=== PATIENT | female | born 1970 | race Caucasian/White ===

== ENCOUNTER 2016-12-23 13:14 | Emergency (ER) | payer MEDICARE, SELFPAY ==
[2016-12-23 11:23] LABS: BASOPHILS 0.3 %; BASOPHILS ABSOLUTE 0.02 10/3/uL (0.0-0.16); ER CBC TAT 0 Hrs 05 Mins; HEMATOCRIT 42.3 % (36.0-48.0); HEMOGLOBIN 14.1 g/dL (12.0-16.0); IMMATURE GRANULOCYTES 0.1 %; IMMATURE GRANULOCYTES ABSOLUTE 0.01 10/3/uL (0.0-0.11); LYMPHOCYTES 21.7 %; LYMPHOCYTES ABSOLUTE 1.47 10/3/uL (0.67-4.30); MEAN CORPUS HGB CONC 33.3 g/dL (32.0-36.0); MEAN CORPUSCULAR HEMOGLOB 29.6 pg (26.0-34.0); MEAN CORPUSCULAR VOLUME 88.9 fL (80-100); MEAN PLATELET VOLUME 10.1 fL (9.2-13.0); MONOCYTES 8.6 %; MONOCYTES ABSOLUTE 0.58 10/3/uL (0.21-1.20); NEUTROPHILS 66.3 %; NEUTROPHILS ABSOLUTE 4.49 10/3/uL (2.02-8.40); PLATELET COUNT 256 10/3/uL (150-400); RBC DISTRIBUTION WIDTH 13.8 % (12.0-16.0); RED CELL COUNT 4.76 10/6/uL (4.0-5.6); WHITE BLOOD CELLS 6.8 10/3/uL (4.5-10.5)
[2016-12-23 11:24] LABS: MANUAL DIFF NO %
[2016-12-23 11:40] LABS: ALBUMIN 3.6 G/DL (3.5-5.0); CALCIUM, SERUM 9.4 MG/DL (8.5-10.4); CHLORIDE, SERUM 107 MMOL/L (96-112); CO2 (CARBON DIOXIDE) 27 MMOL/L (24-34); GFR AFRICAN AMERICAN 120 ML/MIN (>=60); GFR NON AFRICAN AMERICAN 103 ML/MIN (>=60); GLOBULIN 3.7 G/DL (2.5-4.1); GLUCOSE, SERUM 97 MG/DL (60-99); POTASSIUM, SERUM 3.9 MMOL/L (3.5-5.3); SGOT(AST) 14 U/L (5-40); SGPT(ALT) 26 U/L (5-65); SODIUM, SERUM 142 MMOL/L (135-148); TOTAL BILIRUBIN 0.2 MG/DL (0-1.2); TOTAL PROTEIN 7.3 G/DL (6.0-8.5)
[2016-12-23 11:43] LABS: ALKALINE PHOSPHATASE 100 U/L (45-117); BUN (BLOOD UREA NITROGEN) 12 MG/DL (6-23)
[2016-12-23 12:42] LABS: ASCORBIC ACID (UR NOT ORDER) NEG (NEG); BILIRUBIN, URINE NEGATIVE (NEG); ER URINALYSIS TAT 0 Hrs 12 Mins; KETONE, URINE NEGATIVE (NEG); LEUKOCYTE ESTERASE(NOT OR SMALL (NEG); NITRITE (URINE) NEG (NEG); WBC (NOT ORDERED) (RFLEX) 68 (0-5)
[~2016-12-23 13:14] MED LIST: ABILIFY20 MG PO; ALEVE220 MG PO; AMB10 PO; AMB5 PO; AMITIZA24 PO; AMITIZA8 MCG PO; BACDS PO; BELVIQ PO; BUM1 PO; C2 PO; C5 PO; CEFT5 PO; CELEBREX2 PO; CIP5 PO; COUMADIN3 MG PO; COUMADIN4 MG PO; CYMBALTA30 PO; CYMBALTA60 PO; DIL2TAB PO; DSS PO; DUONEB INH; DURICEF PO; ENDOCET1 TA3 PO; ESTRACE0.5 MG PO; ESTRACE1 MG PO; ESTRADIOL1 MG PO; FLEX PO; FLUCON150 PO; FLUCON2 PO; HYDROCHLOROT25 MG PO; IVFLUCO200 IV; K500 PO; L40 PO; LAMICTAL10 PO; LEVAQUIN5T PO; LEVAQUIN750 MG PO; LIDODERM T; LINZESS 290 M290 MCG PO; LORT7 PO; LYRICA150 MG PO; MIRALAXPKT PO; MOBIC7.5 PO; MOMUD PO; MULTIVIT/MIN PO; MYRBETRIQ25 MG PO; MYRBETRIQ50 MG PO; NEUR300 PO; NEUR800 PO; NORCO1 TA1 PO; NORCO1 TA2 PO; P10; P10 PO; P20 PO; PAXIL30 MG PO; PCET PO; PENICILLN VK500 MG PO; PERCOCET1 TA2 PO; PERCOCET1 TA4 PO; PHENTERMINE37.5 M1 OR; PR25 PO; PRILOSEC40 MG PO; PROAIR HFA INH; PROMETHAZIN1 PO; PROVERA5 MG OR; PROVERA5 MG PO; PROZAC PO; PROZAC40 MG PO; PYR200 PO; REMERON30 MG PO; SARAFEM20 M1 PO; SINGULAIR1 PO; SINGULAIR5 PO; SOMATAB PO; SPIRO25 PO; SPIRO50 PO; STERAPDS12 PO; STERAPRED DS10 MG PO; STERIOID; SYMBICORT 160/41 INH INH; SYMBYAX PO; ULTRAM50 PO; V5 PO; VENTOLIN HFA INH; VESICARE5 PO; VICODIN ES1 TAB PO; WELL100 PO; X5 PO; XANAX1 MG PO; XARELTO20 MG PO; ZANAFLEX 4 MG TA4 MG PO; ZYP5 PO; ZYPREXA ZYDI20 MG PO; ZYPREXA10 MG PO; ZYPREXA15 MG PO; ZYPREXA7.5 MG PO; [UNRECOGNIZED DRUG - REMARK]
[2017-03-18] MEDS ORDERED: SANCTURA20 MG PO (13:08)
== END 2016-12-23 13:16 | disposition home or self-care (01) ==
LOC: ER 13:14
PROVIDERS: Nurse Practitioner Acute Care
DX: R10.9 Unspecified abdominal pain (principal); I10 Essential (primary) hypertension; J45.909 Unspecified asthma, uncomplicated; J44.9 Chronic obstructive pulmonary disease, unspecified; Z88.5 Allergy status to narcotic agent; Z88.8 Allergy status to other drugs, medicaments and biological substances; Z79.899 Other long term (current) drug therapy
CPT/HCPCS: 74176; 80053; 81001; 83690; 85025; 87077; 87086; 87186; 99285

== ENCOUNTER 2017-01-18 22:16 | Inpatient (IN) | payer MEDICARE ==
--- NOTE | ~2017-01-18 | HP ---
History And Physical [place] [id number] [facility] [place]. [address] NAME: AMBER MOTA : 68 STATUS : ADM IN [facility]#: [id number] AGE: 46 ADM/REG DATE : 01/19/17 MR#: [id number] REPORT SERV DATE: 01/19/17 DICTATED BY: BRADEN CARLOS DATE: 01/19/17 REPORT STATUS : Draft TRANSCRIBED BY: MODSujata DATE: 01/19/17 DATE OF ADMISSION: 01/19/2017 REASON FOR ADMISSION: Altered mental status. Primary care doctor appears to be Dr. Diaz. She sees Dr. Lyons for urology needs. HISTORY OF PRESENT ILLNESS: This is a 46-year-old female. She has an unfortunate history of cerebral palsy with bilateral lower extremity plegia, does have 5/5 power in her bilateral upper extremities and her mentation is unaffected, known history of UTIs even with MRSA, history of two PEs now on Xarelto, history of nephrolithiasis, even requiring double-J stent with hydronephrosis, hiatal hernia, ITZEL not on CPAP, wears nasal cannula at night, history of COPD, horseshoe kidney, pulmonary hypertension, and schizoaffective disorder. SURGICAL HISTORY: Appendectomy, cholecystectomy, hysterectomy, partial foot amputation on the right, , and tubal ligation. The patient comes in of significant encephalopathy. She thought she could still use her legs as she could four years ago and almost fell to the ground as she does have known chronic bilateral lower extremity plegia due to her progressive cerebral palsy. The patient seemed confused. The family wanted the patient to come to the hospital. Significant dysuria, increased urinary frequency, significant pyuria even with white blood cell casts, has had two courses of antibiotics Cipro and Bactrim with failed outpatient therapy over the last one month. The patient denies any fevers or chills. Positive nausea. No vomiting. No diarrhea. No chest pain or chest pressure. No shortness of breath. PAST MEDICAL HISTORY: See above. PAST SURGICAL HISTORY: See above. ALLERGIES: APPARENTLY MACROBID, JOBY INHIBITOR, MORPHINE, CODEINE, AND CLONIDINE. SOCIAL HISTORY: . Lives with daughter and son in [place], [place]. Total of three children, wheelchair bound now unfortunately. No alcohol, drug use, or tobacco use. FAMILY HISTORY: Stroke, diabetes, and heart disease. CURRENT MEDICATIONS: See MAR. We will continue what is relevant. REVIEW OF SYSTEMS: Done, see HPI. Otherwise, negative. OBJECTIVE: VITAL SIGNS: Currently 120 systolic, the patient was 121/73, 98.0 temperature, 85 pulse, 18 respirations, and 97% room air. History And Physical [address] [address] NAME: AMBER MOTA : 68 STATUS : ADM IN [facility]#: [id number] AGE: 46 ADM/REG DATE : 01/19/17 MR#: [id number] REPORT SERV DATE: 01/19/17 DICTATED BY: BRADEN CARLOS DATE: 01/19/17 REPORT STATUS : Draft TRANSCRIBED BY: MARY DATE: 01/19/17 GENERAL: No acute distress. HEENT: PERRLA. No scleral icterus. CARDIOVASCULAR: Regular rate and rhythm. No murmur. RESPIRATORY: Decreased breath sounds bibasilarly. No wheezes. No crackles. ABDOMEN: She does have some mild right lower quadrant abdominal pain. Tenderness to palpation. No peritoneal signs. No rebound tenderness. EXTREMITIES: She does have left greater than right lower extremity swelling, about 1+ pitting edema. NEUROLOGIC: She is A and O x4/4. GCS of 15 at this time. LABS: White count 6.6, hemoglobin 13.5, 227,000 platelets, 3.5 potassium, 27 bicarb, 0.77 creatinine, 15 BUN, 140 sodium and is a little elevated at 33 as a result, has ABGs 7.39/46/66 and 18, apparently 21%. UA significant positivity. I will be getting a CT abdomen and pelvis. CT of the head did not show any acute stroke, bleed, or mass. ASSESSMENT: 1. Sepsis, severe due to encephalopathy subjectively. SIRS criteria being met which is going to be respirations above 18 transiently and a heart rate above 90 transiently. 2. Urinary tract infection with consideration for drug resistance. 3. Cerebral palsy with bilateral lower extremity plegia. 4. Hyperammonemia, very mild. 5. History of two pulmonary emboli requiring anticoagulation. PLAN: Go ahead and admit this patient. I am concerned about possible drug resistance. I do not want to start meropenem until we have a definite urine culture as the patient is not hemodynamically unstable or profoundly septic at this time except for encephalopathy. As a result, just place the patient on IV Rocephin until urine culture results and may need meropenem. Place on lactulose. Continue the home Xarelto. I do not have a home MAR in front of me, so I am gleaning from the last discharge. Continue the relevant home medications including Abilify. CT abdomen and pelvis to rule out for any pyelonephritis. May need stenting if she has any hydronephrosis once again. All questions were answered. It took well over 60 minutes to do. Reference [employer] and [employer]. WST/MODL Braden Carlos DO / [id number] CC: Buzz Reyes Jr, MD Ted Scoggins, M.D.
--- NOTE | ~2017-01-18 | DS ---
Discharge Summary [place] [address] [address] [place]. [address] NAME: AMBER MOTA : 68 STATUS : DIS IN PAT#: [id number] AGE: 46 ADM/REG DATE : 01/19/17 MR#: [id number] REPORT SERV DATE: 01/23/17 DICTATED BY: JR. REYES WILLIAM JOHN DATE: 01/22/17 REPORT STATUS : Draft TRANSCRIBED BY: MARY DATE: 01/22/17 ADMISSION DATE: 01/19/2017 DISCHARGE DATE: 01/22/2017 DISCHARGE DIAGNOSES: Include: 1. Fungal urinary tract infection. 2. Left knee pain with recent left total knee arthroplasty by Dr. Henderson. 3. Patellar tendon injury. 4. Toxic encephalopathy secondary to fungal urinary tract infection. 5. Cerebral palsy with lower extremity plegia. 6. History of pulmonary embolism. 7. History of chronic obstructive pulmonary disease. 8. Schizoaffective disorder. OPERATIONS, PROCEDURES, AND TREATMENTS: Include: 1. CT of the head done 01/19/2017, which was unremarkable and unchanged from prior study. 2. Portable chest x-ray done 01/19/2017, which was normal. 3. CT of the abdomen and pelvis done 01/19/2017 which showed horseshoe kidney with no parenchymal enhancement. There are no perirenal inflammatory changes. 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 4. 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 5. Urine culture done 01/19/2017, which showed yeast. 6. Blood cultures x2 done 01/19/2017 which showed no growth to date. DISCHARGE MEDICATIONS: Include: 1. Abilify 15 mg orally daily. 2. Cymbalta 120 mg orally daily. 3. Diflucan 200 mg orally daily through 02/03/2017. 4. Neurontin 800 mg orally three times a day. 5. Singulair 10 mg orally daily. 6. Xarelto 20 mg orally daily. 7. Trazodone 150 mg orally daily. 8. Symbicort 160/4.5 two puffs daily. 9. Valium 5 mg t.i.d. p.r.n. 10.Percocet 10/325 one tablet every four hours as needed. 11.Albuterol two puffs as needed. HOSPITAL COURSE: The patient was a 46-year-old female, who presented to the emergency room on 01/19/2017 for mental status change. The patient has a history of cerebral palsy with lower extremity plegia and had a recent mental status change. Please see Dr. Mccartney's dictation for further details. Her workup was consistent with a urinary tract infection. Urine cultures and blood cultures were obtained. She was empirically Discharge Summary [address] [address] [place]. [address] NAME: AMBER MOTA : 68 STATUS : DIS IN PAT#: [id number] AGE: 46 ADM/REG DATE : 01/19/17 MR#: [id number] REPORT SERV DATE: 01/23/17 DICTATED BY: JR. REYES WILLIAM JOHN DATE: 01/22/17 REPORT STATUS : Draft TRANSCRIBED BY: MARY DATE: 01/22/17 started on Rocephin. Urine cultures grew yeast. Her Rocephin was discontinued. She was started on oral Diflucan. The patient's mental status gradually improved. By the day of discharge, the patient's mental status was near or at baseline. Regarding cerebral palsy, the patient was seen and evaluated by Physical Therapy who recommended hospital bed, tub transfer bench, and leg lift, all of which have been written for, and home physical therapy. Regarding the patient's left knee pain, she had her left knee total arthroplasty done by Dr. Henderson in 10/2016. She said she has had pain in the leg ever since and has been unable to bear weight. She underwent an MRI with metal suppression technique which showed what appears to be a repetitive patellar tendon injury. I attempted to get Orthopedic Surgery at [facility] to see the patient. However, they recommended to follow up with Dr. Henderson. I discussed this with the patient. She will follow up with Dr. Henderson. Regarding the patient's hypoxia, she was somewhat hypoxic, likely from inactivity issue of an oxygen desaturation study prior to discharge and will be set up for oxygen if needed. The patient will be discharged home today 01/22/2017 in good condition. She will follow up with her primary care physician, Dr. Hernandez, within one to two weeks. She will follow up with Orthopedic Surgery, Dr. Henderson, regarding patellar tendon injury. DIET: Will be regular. ACTIVITY: As tolerated. We will have home equipment as above, will be evaluated for home oxygen as above. For discharge exam and laboratory, please see daily progress note. This discharge took 38 minutes for patient encounter, coordination of care, and documentation. WJF/MODL Buzz Reyes Jr, MD / [id number] CC: Buzz Reyes Jr, MD Max Russell II Baldwin
[2017-01-19 06:12] LABS: BE (BASE EXCESS) 1.7 MEQ/L (0 +/- 2.5); CARBOXYHEMOGLOBIN 1.9 % (0-3); HCO3 (ACTUAL BICARBONATE) 27.2 MEQ/L (23-27); HEMOBLOGIN CONTENT 14.2 G/DL (12-16); INSTRUMENT SERIAL # 8087; METHEMOGLOBIN 0.3 % (0-3); O2 CONTENT 18.1 VOL% (18-24); PCO2 (CO2 TENSION) 46 MMHG (35-45); PO2 (O2 TENSION) 66 MMHG (79-93); SAMPLE Arterial; pH 7.39 (7.37-7.43)
[2017-01-19 06:21] LABS: BASOPHILS 0 %; EOSINOPHILS 3.2 %; EOSINOPHILS ABSOLUTE 0.21 10/3/uL (0.0-0.53); HEMOGLOBIN 13.5 g/dL (12.0-16.0); LYMPHOCYTES 29.6 %; LYMPHOCYTES ABSOLUTE 1.96 10/3/uL (0.67-4.30); MEAN CORPUS HGB CONC 32.1 g/dL (32.0-36.0); MEAN CORPUSCULAR HEMOGLOB 28.5 pg (26.0-34.0); MEAN CORPUSCULAR VOLUME 88.6 fL (80-100); MEAN PLATELET VOLUME 10.4 fL (9.2-13.0); MONOCYTES 5.9 %; MONOCYTES ABSOLUTE 0.39 10/3/uL (0.21-1.20); NEUTROPHILS 61.3 %; NEUTROPHILS ABSOLUTE 4.07 10/3/uL (2.02-8.40); PLATELET COUNT 227 10/3/uL (150-400); RBC DISTRIBUTION WIDTH 14.3 % (12.0-16.0); RED CELL COUNT 4.74 10/6/uL (4.0-5.6); WHITE BLOOD CELLS 6.6 10/3/uL (4.5-10.5)
[2017-01-19 06:24] LABS: MANUAL DIFF NO %
[2017-01-19 06:30] LABS: INTERNATIONAL NORMAL RATI 1.4 UNITS (-); PROTIME (NOT ORD) 17.2 SEC (12.0-14.5)
[2017-01-19 06:31] LABS: ASCORBIC ACID (UR NOT ORDER) NEG (NEG); BILIRUBIN, URINE NEGATIVE (NEG); ER URINALYSIS TAT 0 Hrs 00 Mins; KETONE, URINE NEGATIVE (NEG); LEUKOCYTE ESTERASE(NOT OR MOD (NEG); NITRITE (URINE) NEG (NEG); WBC (NOT ORDERED) (RFLEX) > 182 (0-5)
[2017-01-19 06:35] LABS: AMPHETAMINES (NOT ORD) NEG (NEG); BENZODIAZEPINES (NOT ORD) NEG (NEG); COCAINE (NOT ORDERED) NEG (NEG); PHENCYCLIDINE(PCP) NEG (NEG)
[2017-01-19 06:36] LABS: BARBITURATES (NOT ORDERED NEG (NEG); CANNABINOIDS (THC) NEG (NEG); OPIATES POS (NEG); TRICYCLICS NEG (NEG)
[2017-01-19 06:39] LABS: A/G RATIO 0.9 (0.7-1.9); ALBUMIN 3.5 G/DL (3.5-5.0); ALKALINE PHOSPHATASE 106 U/L (45-117); BUN (BLOOD UREA NITROGEN) 15 MG/DL (6-23); CALCIUM, SERUM 9.2 MG/DL (8.5-10.4); CHLORIDE, SERUM 101 MMOL/L (96-112); CO2 (CARBON DIOXIDE) 27 MMOL/L (24-34); CREATININE 0.77 MG/DL (0.55-1.02); GFR AFRICAN AMERICAN 107 ML/MIN (>=60); GFR NON AFRICAN AMERICAN 92 ML/MIN (>=60); GLOBULIN 3.7 G/DL (2.5-4.1); GLUCOSE, SERUM 89 MG/DL (60-99); POTASSIUM, SERUM 3.5 MMOL/L (3.5-5.3); SGPT(ALT) 35 U/L (5-65); SODIUM, SERUM 140 MMOL/L (135-148); TOTAL BILIRUBIN 0.9 MG/DL (0-1.2); TOTAL PROTEIN 7.2 G/DL (6.0-8.5); TROPONIN I <0.02 NG/ML (<0.05)
[2017-01-19 06:40] LABS: ACETAMINOPHEN LEVEL (TYLENOL) < 2.0 MCG/ML (10.0-20.0); ALCOHOL < 10 MG/DL (0); CPK 51 U/L (0-200); SALICYLATE < 1.7 MG/DL (-); SGOT(AST) 22 U/L (5-40)
[2017-01-19] MEDS ORDERED: NEUR800 PO (09:33)
[2017-01-19] MEDS ORDERED: V5 PO (09:33)
[2017-01-19] MEDS ORDERED: PERCOCET 10/3251 TAB PO (09:33)
[2017-01-19] MEDS ORDERED: SINGULAIR1 PO (09:34)
[2017-01-19] MEDS ORDERED: CYMBALTA60 PO (09:34)
[2017-01-19] MEDS ORDERED: XARELTO20 MG PO (09:34)
[2017-01-19] MEDS ORDERED: ABILIFY15 PO (09:34)
[2017-01-19] MEDS ORDERED: PROAIR HFA INH (09:35)
[2017-01-19] MEDS ORDERED: SYMBICORT 160/41 INH INH (09:35)
[2017-01-19] MEDS ORDERED: TRAZODONE150 MG PO (09:35)
[2017-01-19 16:45] LABS: BASOPHILS 0 %; EOSINOPHILS 0.6 %; EOSINOPHILS ABSOLUTE 0.03 10/3/uL (0.0-0.53); HEMATOCRIT 37.8 % (36.0-48.0); HEMOGLOBIN 12.2 g/dL (12.0-16.0); IMMATURE GRANULOCYTES 0.4 %; IMMATURE GRANULOCYTES ABSOLUTE 0.02 10/3/uL (0.0-0.11); LYMPHOCYTES 26.5 %; LYMPHOCYTES ABSOLUTE 1.33 10/3/uL (0.67-4.30); MANUAL DIFF NO %; MEAN CORPUS HGB CONC 32.3 g/dL (32.0-36.0); MEAN CORPUSCULAR HEMOGLOB 28.2 pg (26.0-34.0); MEAN CORPUSCULAR VOLUME 87.5 fL (80-100); MEAN PLATELET VOLUME 9.8 fL (9.2-13.0); MONOCYTES 6.2 %; MONOCYTES ABSOLUTE 0.31 10/3/uL (0.21-1.20); NEUTROPHILS 66.3 %; NEUTROPHILS ABSOLUTE 3.32 10/3/uL (2.02-8.40); PLATELET COUNT 209 10/3/uL (150-400); RED CELL COUNT 4.32 10/6/uL (4.0-5.6)
[2017-01-19 17:07] LABS: A/G RATIO 1.1 (0.7-1.9); ALBUMIN 3.3 G/DL (3.5-5.0); ALKALINE PHOSPHATASE 94 U/L (45-117); BUN (BLOOD UREA NITROGEN) 11 MG/DL (6-23); CALCIUM, SERUM 8.6 MG/DL (8.5-10.4); CHLORIDE, SERUM 104 MMOL/L (96-112); CO2 (CARBON DIOXIDE) 26 MMOL/L (24-34); CREATININE 0.57 MG/DL (0.55-1.02); GFR AFRICAN AMERICAN 128 ML/MIN (>=60); GFR NON AFRICAN AMERICAN 110 ML/MIN (>=60); GLOBULIN 2.9 G/DL (2.5-4.1); GLUCOSE, SERUM 90 MG/DL (60-99); PHOSPHORUS, SERUM 2.9 MG/DL (2.5-4.5); POTASSIUM, SERUM 3.7 MMOL/L (3.5-5.3); SGOT(AST) 14 U/L (5-40); SGPT(ALT) 28 U/L (5-65); SODIUM, SERUM 140 MMOL/L (135-148); TOTAL BILIRUBIN 0.8 MG/DL (0-1.2); TOTAL PROTEIN 6.2 G/DL (6.0-8.5); TROPONIN I <0.02 NG/ML (<0.05); ULTRASENSITIVE TSH 0.808 MCIU/ML (0.358-3.740)
[2017-01-19 18:31] LABS: PROCALCITONIN < 0.05 ng/mL (<0.5)
[2017-01-20 04:23] LABS: BASOPHILS 0 %; EOSINOPHILS 2.8 %; EOSINOPHILS ABSOLUTE 0.14 10/3/uL (0.0-0.53); HEMATOCRIT 36.7 % (36.0-48.0); HEMOGLOBIN 11.9 g/dL (12.0-16.0); IMMATURE GRANULOCYTES 0.2 %; IMMATURE GRANULOCYTES ABSOLUTE 0.01 10/3/uL (0.0-0.11); LYMPHOCYTES 39.5 %; LYMPHOCYTES ABSOLUTE 2.01 10/3/uL (0.67-4.30); MEAN CORPUS HGB CONC 32.4 g/dL (32.0-36.0); MEAN CORPUSCULAR HEMOGLOB 28.5 pg (26.0-34.0); MEAN CORPUSCULAR VOLUME 87.8 fL (80-100); MEAN PLATELET VOLUME 9.6 fL (9.2-13.0); MONOCYTES 9.8 %; NEUTROPHILS 47.7 %; NEUTROPHILS ABSOLUTE 2.43 10/3/uL (2.02-8.40); PLATELET COUNT 215 10/3/uL (150-400); RBC DISTRIBUTION WIDTH 14.2 % (12.0-16.0); RED CELL COUNT 4.18 10/6/uL (4.0-5.6); WHITE BLOOD CELLS 5.1 10/3/uL (4.5-10.5)
[2017-01-20 04:26] LABS: MANUAL DIFF NO %
[2017-01-20 04:38] LABS: BUN (BLOOD UREA NITROGEN) 9 MG/DL (6-23); CALCIUM, SERUM 8.9 MG/DL (8.5-10.4); CHLORIDE, SERUM 109 MMOL/L (96-112); CO2 (CARBON DIOXIDE) 26 MMOL/L (24-34); CREATININE 0.62 MG/DL (0.55-1.02); GFR AFRICAN AMERICAN 124 ML/MIN (>=60); GFR NON AFRICAN AMERICAN 107 ML/MIN (>=60); GLUCOSE, SERUM 93 MG/DL (60-99); POTASSIUM, SERUM 3.6 MMOL/L (3.5-5.3); SODIUM, SERUM 145 MMOL/L (135-148)
[2017-01-21 04:44] LABS: BASOPHILS 0.2 %; BASOPHILS ABSOLUTE 0.01 10/3/uL (0.0-0.16); EOSINOPHILS 5.1 %; EOSINOPHILS ABSOLUTE 0.29 10/3/uL (0.0-0.53); HEMOGLOBIN 13.3 g/dL (12.0-16.0); LYMPHOCYTES 40.9 %; LYMPHOCYTES ABSOLUTE 2.32 10/3/uL (0.67-4.30); MEAN CORPUS HGB CONC 32.5 g/dL (32.0-36.0); MEAN CORPUSCULAR VOLUME 89.3 fL (80-100); MEAN PLATELET VOLUME 9.9 fL (9.2-13.0); MONOCYTES 6.2 %; MONOCYTES ABSOLUTE 0.35 10/3/uL (0.21-1.20); NEUTROPHILS 47.6 %; PLATELET COUNT 218 10/3/uL (150-400); RBC DISTRIBUTION WIDTH 14.3 % (12.0-16.0); RED CELL COUNT 4.58 10/6/uL (4.0-5.6); WHITE BLOOD CELLS 5.7 10/3/uL (4.5-10.5)
[2017-01-21 04:46] LABS: HEMATOCRIT 40.9 % (36.0-48.0); MANUAL DIFF NO %
[2017-01-21 04:52] LABS: BUN (BLOOD UREA NITROGEN) 7 MG/DL (6-23); CHLORIDE, SERUM 109 MMOL/L (96-112); CO2 (CARBON DIOXIDE) 28 MMOL/L (24-34); GFR AFRICAN AMERICAN 126 ML/MIN (>=60); GFR NON AFRICAN AMERICAN 109 ML/MIN (>=60); GLUCOSE, SERUM 102 MG/DL (60-99); PHOSPHORUS, SERUM 3.5 MG/DL (2.5-4.5); POTASSIUM, SERUM 3.7 MMOL/L (3.5-5.3); SODIUM, SERUM 145 MMOL/L (135-148)
[2017-01-21 04:55] LABS: C-REACTIVE PROTEIN < 2.9 MG/L (<8.0)
[2017-01-21 05:44] LABS: SED RATE 13 MM/HR (0-20)
[2017-01-21 06:22] LABS: PROCALCITONIN <0.05 ng/mL (<0.5)
[2017-01-21 13:53] LABS: ASCORBIC ACID (UR NOT ORDER) NEG (NEG); BILIRUBIN, URINE NEGATIVE (NEG); KETONE, URINE NEGATIVE (NEG); LEUKOCYTE ESTERASE(NOT OR MOD (NEG); WBC (NOT ORDERED) (RFLEX) 113 (0-5)
[2017-01-22 03:59] LABS: BASOPHILS 0 %; EOSINOPHILS 4.4 %; EOSINOPHILS ABSOLUTE 0.29 10/3/uL (0.0-0.53); HEMATOCRIT 39.1 % (36.0-48.0); HEMOGLOBIN 12.8 g/dL (12.0-16.0); IMMATURE GRANULOCYTES 0.2 %; IMMATURE GRANULOCYTES ABSOLUTE 0.01 10/3/uL (0.0-0.11); LYMPHOCYTES 34.9 %; LYMPHOCYTES ABSOLUTE 2.29 10/3/uL (0.67-4.30); MEAN CORPUS HGB CONC 32.7 g/dL (32.0-36.0); MEAN CORPUSCULAR HEMOGLOB 29.4 pg (26.0-34.0); MEAN CORPUSCULAR VOLUME 89.7 fL (80-100); MEAN PLATELET VOLUME 9.7 fL (9.2-13.0); MONOCYTES 5.8 %; MONOCYTES ABSOLUTE 0.38 10/3/uL (0.21-1.20); NEUTROPHILS 54.7 %; NEUTROPHILS ABSOLUTE 3.59 10/3/uL (2.02-8.40); PLATELET COUNT 203 10/3/uL (150-400); RBC DISTRIBUTION WIDTH 14.3 % (12.0-16.0); RED CELL COUNT 4.36 10/6/uL (4.0-5.6); WHITE BLOOD CELLS 6.6 10/3/uL (4.5-10.5)
[2017-01-22 04:11] LABS: MANUAL DIFF NO %
[2017-01-22 04:15] LABS: BUN (BLOOD UREA NITROGEN) 11 MG/DL (6-23); CALCIUM, SERUM 8.8 MG/DL (8.5-10.4); CHLORIDE, SERUM 106 MMOL/L (96-112); CO2 (CARBON DIOXIDE) 30 MMOL/L (24-34); CREATININE 0.72 MG/DL (0.55-1.02); GFR AFRICAN AMERICAN 116 ML/MIN (>=60); GFR NON AFRICAN AMERICAN 100 ML/MIN (>=60); GLUCOSE, SERUM 96 MG/DL (60-99); PHOSPHORUS, SERUM 4.6 MG/DL (2.5-4.5); POTASSIUM, SERUM 3.6 MMOL/L (3.5-5.3); SODIUM, SERUM 143 MMOL/L (135-148)
[2017-01-22] MEDS ORDERED: FLUCON2 PO (12:30)
[2017-03-18] MEDS ORDERED: SANCTURA20 MG PO (13:08)
== END 2017-01-22 15:38 | disposition home or self-care (01) | DRG 689 ==
LOC: ER 22:16 → ER/OF 01-19 13:04 → CDU1 01-19 13:46 → CDU2 01-19 13:55 → 4SO 01-21 06:59
PROVIDERS: Hospitalist; Internal Medicine
DX: N39.0 Urinary tract infection, site not specified (principal); G92 Toxic encephalopathy; I27.2 Other secondary pulmonary hypertension; B48.8 Other specified mycoses; F25.9 Schizoaffective disorder, unspecified; Z86.711 Personal history of pulmonary embolism; Z79.01 Long term (current) use of anticoagulants; G80.8 Other cerebral palsy; Z87.442 Personal history of urinary calculi; G47.33 Obstructive sleep apnea (adult) (pediatric); J44.9 Chronic obstructive pulmonary disease, unspecified; Q63.1 Lobulated, fused and horseshoe kidney; Z89.431 Acquired absence of right foot; Z88.8 Allergy status to other drugs, medicaments and biological substances; Z88.5 Allergy status to narcotic agent; Z96.652 Presence of left artificial knee joint; S76.102A Unspecified injury of left quadriceps muscle, fascia and tendon, initial encounter; R09.02 Hypoxemia; Z88.1 Allergy status to other antibiotic agents; Z99.3 Dependence on wheelchair
CPT/HCPCS: 36600; 70450; 71010; 73700-LT; 73721-LT; 74177; 80048; 80053; 80305; 80307; 81001; 82140; 82550; 82805; 82962; 83036; 83735; 83880; 84100; 84145; 84443; 84484; 85025; 85610; 85652; 85730; 86140; 87040; 87086; 87449; 93005; 94640; 97161-GP; 99285; A9270-GY; C9113; G8978-CL-GP; G8979-CK-GP; J1170; J2405; Q9967

== ENCOUNTER 2017-03-06 21:14 | Inpatient (IN) | payer MEDICARE ==
--- NOTE | ~2017-03-06 | OP ---
Record Of Operation [facility] [address] [place]. [address] NAME: AMBER MOTA : 68 STATUS : ADM Jeffry PAT#: [id number] AGE: 46 ADM/REG DATE : 03/06/17 MR#: [id number] REPORT SERV DATE: 03/07/17 DICTATED BY: MICHAEL GOMEZ III DATE: 03/07/17 REPORT STATUS : Draft TRANSCRIBED BY: MODL DATE: 03/07/17 DATE OF PROCEDURE: 03/07/2017 PROCEDURE: Cystoscopy, right retrograde, and ureteroscopy with insertion of right double-J stent. PREOPERATIVE DIAGNOSIS: Right ureteral calculus. POSTOPERATIVE DIAGNOSIS: Right ureteral calculus and pyonephrosis. PROCEDURE IN DETAIL: Following induction of adequate general anesthesia, the patient was placed in dorsal lithotomy position, prepped and draped in a sterile fashion. Urethra was examined and noted to be normal. The bladder was entered. The orifices were opened. There was debris in the bladder. A right retrograde was done, which was to the orthotopic ureter and the ureter was of normal caliber. The patient has a horseshoe kidney with a duplicated system on the right. The upper pole ectopic ureter opened just at the bladder neck. This required some time to locate. It was located, wire was placed, and attempted a retrograde but the detail was poor, so I placed the scope over the wire. Looked up to the approximately L5, there was a lot of purulent debris. I did not see the stone, but the kidney obviously was infected. A 5 x 24 stent was placed with a loop in the bladder and a loop in the upper pole. The patient tolerated the procedure well. We will do definitive stone removal at a later date. OB/MODL Michael Gomez III, M.D. / [id number] CC: Ana María Callahan III, MAX RUSSELL II
--- NOTE | ~2017-03-06 | HP ---
History And Physical [place] [address] [facility] [place]. [address] NAME: AMBER MOTA : 68 STATUS : ADM Jeffry PAT#: [id number] AGE: 46 ADM/REG DATE : 03/06/17 MR#: [id number] REPORT SERV DATE: 03/07/17 DICTATED BY: MICHAEL GOMEZ III DATE: 03/06/17 REPORT STATUS : Draft TRANSCRIBED BY: MARY DATE: 03/06/17 DATE OF ADMISSION: 03/06/2017 REASON FOR ADMISSION: Right flank pain, nausea. HISTORY OF PRESENT ILLNESS: Amber is a 46-year-old white female with cerebral palsy, who has had numerous stones, she was in rehab for her lower extremity function, developed acute pain earlier today and with some nausea, this was in the right flank radiating to the right lower quadrant. She also started having some increase in urgency and frequency. She has a known horseshoe kidney with two ureters on the right side, one opening in almost in the orthotopic position and the other in the bladder neck. She has had no fever or chills; simply had pain that was not controlled. Rather history includes recurrent UTIs. Her urine always has rbc's and wbc's, and frequently has yeast infections. She was admitted to the ER, vital signs were stable. CT scan was done which I reviewed, it showed a horseshoe kidney. There was a stone in the distal ureter, I believe it to be the lower pole ureter. The upper pole ureter has always been difficult to visualize unless there was a stone in it. I did not see a calculus under the base of the bladder. There was some slight reaction around the right side of the horseshoe kidney. PAST MEDICAL HISTORY: Includes cerebral palsy, asthma. She had a pulmonary embolus several years ago. Has hypertension, anxiety, and depression. PAST SURGICAL HISTORY: Includes hysterectomy and cholecystectomy. She is 3, para 3, has bilateral tubal ligation. Has had knee surgery and several surgeries on her feet. ALLERGIES: SHE IS ALLERGIC TO MACROBID, CLONIDINE, AND MORPHINE. SOCIAL HISTORY: She does not smoke or drink. FAMILY HISTORY: Positive for CVA and diabetes. PHYSICAL EXAMINATION: GENERAL: She is alert and comfortable. VITAL SIGNS: Pulse is 88, temperature is 97.3, and blood pressure 137/79. HEENT: Unremarkable with the exception of some mildly dry mucous membranes. NECK: Supple. LUNGS: Clear. HEART: She had a regular rate and rhythm without murmur or gallop. ABDOMEN: Soft. Bowel sounds are present and active. Liver and spleen were not enlarged. There was mild right flank tenderness to percussion. EXTREMITIES: She has limited abduction of her thighs which is her usual state. She does have fairly good range of motion of the left knee. LABORATORY DATA: White count is 11,200 with 12 bands. Electrolytes were normal. History And Physical [address] [address] NAME: AMBER MOTA : 68 STATUS : ADM Jeffry PAT#: [id number] AGE: 46 ADM/REG DATE : 03/06/17 MR#: [id number] REPORT SERV DATE: 03/07/17 DICTATED BY: MICHAEL GOMEZ III DATE: 03/06/17 REPORT STATUS : Draft TRANSCRIBED BY: MODL DATE: 03/06/17 Urinalysis with rbc's, wbc's with yeast and some bacteria. IMPRESSION: Right ureteral calculus. She is not toxic at this point. It was an acute onset of pain with no proceeding chills, fever, etc. I do think she is going to need a stent rather than a stone manipulation tomorrow given the fact that her urine is infected and potentially she could have pyelonephritis. I have discussed a cysto stent with her and we will probably simply place a stent in the morning approximately 8 hours from now unless her vital signs change. I will keep her n.p.o. and I left parameters to be called. She understands the above and has agreed to it. OB/MODL Michael Gomez III, M.D. / [id number] CC: MD YAQUELIN Felipe JR., PAC
--- NOTE | ~2017-03-06 | DS ---
Discharge Summary [facility] [address] [place]. [address] NAME: AMBER MOTA : 68 STATUS : DIS IN PAT#: [id number] AGE: 46 ADM/REG DATE : 03/09/17 MR#: [id number] REPORT SERV DATE: 03/11/17 DICTATED BY: MICHAEL GOMEZ III DATE: 03/11/17 REPORT STATUS : Draft TRANSCRIBED BY: MODSujata DATE: 03/11/17 ADMISSION DATE: 03/09/2017 DISCHARGE DATE: 03/11/2017 DISCHARGE DIAGNOSIS: Right hydronephrosis, right ureteral calculus with fungal pyelonephritis. PROCEDURE: Cystoscopy, right retrograde, bilateral ureteroscopy, and placement of double-J stent. HISTORY: Amber is a 46-year-old, white female with cerebral palsy, has had numerous stones. She has a horseshoe kidney and has passed a number of stones and had pyelonephritis on several occasions as well as UTIs. Recently, she had yeast in the urine and was given one dose of Diflucan. We were not aware of this at time of admission; however, she was admitted with a white count 11,000 with 12 bands and a stone in the distal ureter on the right side. She has a duplex system on that side, upper pole draining into the bladder neck and has had stones in both the upper pole moiety and the lower. PAST MEDICAL HISTORY: Includes cerebral palsy, asthma. She had a pulmonary embolus several years ago and is on Xarelto. She has hypertension, anxiety, and depression. PAST SURGICAL HISTORY: Surgery includes hysterectomy and cholecystectomy. She is 3 and para 3 and has had bilateral tubal ligation. Recently had knee surgery and is in rehab. Also had numerous surgeries on her feet. ALLERGIES: SHE IS ALLERGIC TO MACROBID, CLONIDINE, AND MORPHINE. SOCIAL HISTORY: She does not smoke or drink. FAMILY HISTORY: Positive for CVA and diabetes. HOSPITAL COURSE: She was taken to the operating room, both ureters were evaluated, the right side had clear urine, was dilated, but no stone was noted. In the ectopic ureter, there was a good bit of debris as it was in the urine. The stone apparently migrated ureteroscope to the proximal ureter. A stent was placed and she was initially placed on Zosyn. The culture came back yeast. She was started on Diflucan and on 03/11 she was adjudged to be a candidate for discharge. The day prior to discharge, her sats were running low; however, her sats were in the 96 range, off oxygen on the day of discharge. She will be discharged on Diflucan 150 mg daily for the next 10 days. We will schedule definitive therapy i.e. flexible ureteroscopy in one week. OB/MODL Michael Discharge Summary [address] [address] NAME: AMBER MOTA : 68 STATUS : DIS IN PAT#: [id number] AGE: 46 ADM/REG DATE : 03/09/17 MR#: [id number] REPORT SERV DATE: 03/11/17 DICTATED BY: MICHAEL GOMEZ III DATE: 03/11/17 REPORT STATUS : Draft TRANSCRIBED BY: MODL DATE: 03/11/17 Eloy FERRIS M.D. / [id number] CC: Ana María Callahan III, MAX RUSSELL
[~2017-03-06 21:14] MED LIST changes: +ABILIFY15 PO; +PERCOCET 10/3251 TAB PO; +TRAZODONE150 MG PO
[2017-03-06 21:26] LABS: BASOPHILS 0 %; EOSINOPHILS 0.3 %; EOSINOPHILS ABSOLUTE 0.04 10/3/uL (0.0-0.53); HEMOGLOBIN 13.8 g/dL (12.0-16.0); IMMATURE GRANULOCYTES 0.3 %; IMMATURE GRANULOCYTES ABSOLUTE 0.04 10/3/uL (0.0-0.11); LYMPHOCYTES 9.5 %; LYMPHOCYTES ABSOLUTE 1.11 10/3/uL (0.67-4.30); MEAN CORPUS HGB CONC 32.9 g/dL (32.0-36.0); MEAN CORPUSCULAR HEMOGLOB 28.8 pg (26.0-34.0); MEAN CORPUSCULAR VOLUME 87.5 fL (80-100); MEAN PLATELET VOLUME 9.6 fL (9.2-13.0); MONOCYTES 6.1 %; MONOCYTES ABSOLUTE 0.71 10/3/uL (0.21-1.20); NEUTROPHILS 83.8 %; NEUTROPHILS ABSOLUTE 9.74 10/3/uL (2.02-8.40); PLATELET COUNT 262 10/3/uL (150-400); RBC DISTRIBUTION WIDTH 14.7 % (12.0-16.0)
[2017-03-06 21:28] LABS: MANUAL DIFF NO %; WHITE BLOOD CELLS 11.6 10/3/uL (4.5-10.5)
[2017-03-06 21:34] LABS: ASCORBIC ACID (UR NOT ORDER) NEG (NEG); BILIRUBIN, URINE NEGATIVE (NEG); ER URINALYSIS TAT 0 Hrs 12 Mins; KETONE, URINE NEGATIVE (NEG); LEUKOCYTE ESTERASE(NOT OR MOD (NEG); NITRITE (URINE) NEG (NEG); WBC (NOT ORDERED) (RFLEX) 64 (0-5)
[2017-03-06 21:44] LABS: BUN (BLOOD UREA NITROGEN) 13 MG/DL (6-23); CALCIUM, SERUM 9.6 MG/DL (8.5-10.4); CHLORIDE, SERUM 103 MMOL/L (96-112); CO2 (CARBON DIOXIDE) 34 MMOL/L (24-34); CREATININE 0.79 MG/DL (0.55-1.02); GFR AFRICAN AMERICAN 103 ML/MIN (>=60); GFR NON AFRICAN AMERICAN 89 ML/MIN (>=60); GLUCOSE, SERUM 111 MG/DL (60-99); SGOT(AST) 16 U/L (5-40); SGPT(ALT) 28 U/L (5-65); SODIUM, SERUM 140 MMOL/L (135-148)
[2017-03-06 21:45] LABS: A/G RATIO 1.1 (0.7-1.9); ALKALINE PHOSPHATASE 155 U/L (45-117); GLOBULIN 3.8 G/DL (2.5-4.1); TOTAL BILIRUBIN 0.3 MG/DL (0-1.2); TOTAL PROTEIN 7.8 G/DL (6.0-8.5)
[2017-03-06] MEDS ORDERED: ABILIFY15 PO (23:27)
[2017-03-06] MEDS ORDERED: CYMBALTA60 PO (23:27)
[2017-03-06] MEDS ORDERED: XARELTO20 MG PO (23:27)
[2017-03-06] MEDS ORDERED: NEUR800 PO (23:27)
[2017-03-06] MEDS ORDERED: SINGULAIR1 PO (23:28)
[2017-03-06] MEDS ORDERED: Proair Hfa (23:28)
[2017-03-06] MEDS ORDERED: SYMBICORT 160/41 INH INH (23:28)
[2017-03-06] MEDS ORDERED: V5 PO (23:28)
[2017-03-06] MEDS ORDERED: TRAZ100 PO (23:29)
[2017-03-06] MEDS ORDERED: PERCOCET 10/3251 TAB PO (23:29)
[2017-03-08 05:47] LABS: BASOPHILS 0.1 %; BASOPHILS ABSOLUTE 0.01 10/3/uL (0.0-0.16); EOSINOPHILS 1.5 %; EOSINOPHILS ABSOLUTE 0.13 10/3/uL (0.0-0.53); HEMOGLOBIN 11.9 g/dL (12.0-16.0); IMMATURE GRANULOCYTES 0.2 %; IMMATURE GRANULOCYTES ABSOLUTE 0.02 10/3/uL (0.0-0.11); LYMPHOCYTES 22.1 %; LYMPHOCYTES ABSOLUTE 1.95 10/3/uL (0.67-4.30); MEAN CORPUS HGB CONC 32.5 g/dL (32.0-36.0); MEAN CORPUSCULAR HEMOGLOB 29.1 pg (26.0-34.0); MEAN CORPUSCULAR VOLUME 89.5 fL (80-100); MONOCYTES 9.2 %; MONOCYTES ABSOLUTE 0.81 10/3/uL (0.21-1.20); NEUTROPHILS 66.9 %; NEUTROPHILS ABSOLUTE 5.89 10/3/uL (2.02-8.40); PLATELET COUNT 224 10/3/uL (150-400); RBC DISTRIBUTION WIDTH 14.9 % (12.0-16.0); RED CELL COUNT 4.09 10/6/uL (4.0-5.6); WHITE BLOOD CELLS 8.8 10/3/uL (4.5-10.5)
[2017-03-08 05:49] LABS: HEMATOCRIT 36.6 % (36.0-48.0); MANUAL DIFF NO %
[2017-03-08 06:03] LABS: CALCIUM, SERUM 9.2 MG/DL (8.5-10.4); CHLORIDE, SERUM 104 MMOL/L (96-112); CREATININE 0.66 MG/DL (0.55-1.02); GFR AFRICAN AMERICAN 122 ML/MIN (>=60); GFR NON AFRICAN AMERICAN 105 ML/MIN (>=60); GLUCOSE, SERUM 100 MG/DL (60-99); POTASSIUM, SERUM 3.5 MMOL/L (3.5-5.3); SODIUM, SERUM 142 MMOL/L (135-148)
[2017-03-08 06:17] LABS: BUN (BLOOD UREA NITROGEN) 7 MG/DL (6-23); CO2 (CARBON DIOXIDE) 29 MMOL/L (24-34)
[2017-03-10 06:21] LABS: BASOPHILS 0 %; EOSINOPHILS 4.6 %; EOSINOPHILS ABSOLUTE 0.31 10/3/uL (0.0-0.53); HEMOGLOBIN 10.5 g/dL (12.0-16.0); IMMATURE GRANULOCYTES 0.1 %; IMMATURE GRANULOCYTES ABSOLUTE 0.01 10/3/uL (0.0-0.11); LYMPHOCYTES ABSOLUTE 2.09 10/3/uL (0.67-4.30); MEAN CORPUS HGB CONC 32.2 g/dL (32.0-36.0); MEAN CORPUSCULAR HEMOGLOB 29.1 pg (26.0-34.0); MEAN CORPUSCULAR VOLUME 90.3 fL (80-100); MEAN PLATELET VOLUME 9.7 fL (9.2-13.0); MONOCYTES 7.6 %; MONOCYTES ABSOLUTE 0.51 10/3/uL (0.21-1.20); NEUTROPHILS 56.7 %; NEUTROPHILS ABSOLUTE 3.83 10/3/uL (2.02-8.40); PLATELET COUNT 237 10/3/uL (150-400); RBC DISTRIBUTION WIDTH 15.1 % (12.0-16.0); RED CELL COUNT 3.61 10/6/uL (4.0-5.6); WHITE BLOOD CELLS 6.8 10/3/uL (4.5-10.5)
[2017-03-10 06:22] LABS: HEMATOCRIT 32.6 % (36.0-48.0); MANUAL DIFF NO %
[2017-03-10 06:34] LABS: BUN (BLOOD UREA NITROGEN) 8 MG/DL (6-23); CHLORIDE, SERUM 108 MMOL/L (96-112); CO2 (CARBON DIOXIDE) 31 MMOL/L (24-34); CREATININE 0.56 MG/DL (0.55-1.02); GFR AFRICAN AMERICAN 129 ML/MIN (>=60); GFR NON AFRICAN AMERICAN 111 ML/MIN (>=60); GLUCOSE, SERUM 101 MG/DL (60-99); POTASSIUM, SERUM 3.5 MMOL/L (3.5-5.3); SODIUM, SERUM 143 MMOL/L (135-148)
[2017-03-18] MEDS ORDERED: SANCTURA20 MG PO (13:08)
== END 2017-03-11 13:10 | DRG 690 ==
LOC: ER 21:14 → 4SO 23:18
PROVIDERS: Emergency Medicine; Urology
PROC: BT1BZZZ Fluoroscopy of Bladder and Urethra (ICD-10-PCS; principal; 2017-03-07 07:00)
PROC: 0T768DZ Dilation of Right Ureter with Intraluminal Device, Via Natural or Artificial Opening Endoscopic (ICD-10-PCS; principal; 2017-03-07 07:00)
DX: N13.6 Pyonephrosis (principal); I27.2 Other secondary pulmonary hypertension; Z68.41 Body mass index [BMI] 40.0-44.9, adult; B37.49 Other urogenital candidiasis; G80.8 Other cerebral palsy; I10 Essential (primary) hypertension; F32.9 Major depressive disorder, single episode, unspecified; J45.909 Unspecified asthma, uncomplicated; E66.9 Obesity, unspecified; Z86.711 Personal history of pulmonary embolism; Q63.1 Lobulated, fused and horseshoe kidney; Q62.5 Duplication of ureter; F41.9 Anxiety disorder, unspecified; N39.46 Mixed incontinence; Z88.3 Allergy status to other anti-infective agents; Z88.8 Allergy status to other drugs, medicaments and biological substances; Z88.5 Allergy status to narcotic agent; Z79.01 Long term (current) use of anticoagulants
CPT/HCPCS: 71010; 74176; 74420; 80048; 80053; 81001; 85025; 87040; 87086; 94640; 96374; 96375; 99285; A9270-GY; C1758; C1769; C2617; J1170; J2250; J2370; J2405; J2543; J2710; J3010; Q9967

== ENCOUNTER 2017-03-26 07:41 | Inpatient (IN) | payer MEDICARE ==
--- NOTE | ~2017-03-26 | CN ---
Consultation Report [facility] [address] [place]. [address] NAME: AMEBR MOTA : 68 STATUS : ADM IN [facility]#: [id number] AGE: 46 ADM/REG DATE : 03/26/17 MR#: [id number] REPORT SERV DATE: 03/27/17 DICTATED BY: DATE: REPORT STATUS : Draft TRANSCRIBED BY: MODL DATE: 03/27/17 CONSULTATION DATE OF CONSULTATION: 03/27/2017 REASON FOR CONSULTATION: Shortness of breath, history of asthma, and history of pulmonary emboli. IDENTIFYING DATA: ORTHOPEDIST: Dr. Solis. HISTORY OF PRESENT ILLNESS: This is a pleasant 46-year-old white female with a history of cerebral palsy, who has had a number of renal calculi. The patient is status post cystoscopy with right pyelogram, ureteroscopy, and stone extraction and double-J stent placement on 03/26/2017. The patient also has a long-standing history of cerebral palsy with bilateral lower extremity plegia, does have 5/5 power in her bilateral upper extremities and her mentation is unaffected. The patient has a significant history of recurrent UTIs and MRSA. The patient has also had pulmonary emboli x2, one in 2014 and one in 2015. The patient does use O2 at 2 L at bedtime but not during the day. The patient also has never had a sleep study. The patient's history was obtained through careful interview with the patient, coupled with review in [employer] and [employer]. The patient states she has had no significant shortness of breath or chest pain. She has only used her rescue inhaler once in six months. Does have albuterol nebulizers at home that she can use on a p.r.n. basis which she says she has not ever used to before. PAST MEDICAL HISTORY: Significant for urinary tract infections with MRSA, Klebsiella, and E coli; pulmonary emboli in 10/2014 and 06/2016; cerebral palsy with physical disability leading up to complete paraplegia but no mental deficits; nephrolithiasis with history of stent and hydronephrosis; hiatal hernia; obstructive sleep apnea but not on CPAP, never had sleep study, wears nasal cannula at night; hypertension; COPD/asthma; pulmonary hypertension; horseshoe kidney; schizoaffective disorder; morbid obesity; migraines; chronic pain; GERD; anxiety and depression; arthritis; chronic pain syndrome; gastritis; IBS; constipation; endometriosis; urinary incontinence; and hypoglycemia. HOME MEDICATIONS: Albuterol two puffs four times a day as needed p.r.n. shortness of breath, Abilify 15 mg daily, Symbicort 160/4.5 inhaler two puffs twice daily, Valium 5 mg three times daily, Cymbalta 60 mg daily, gabapentin 800 mg three times daily, Singulair 10 mg daily, Percocet 10/325 one tablet q.4 hours p.r.n. pain, Xarelto 20 mg daily, trazodone 100 mg at bedtime, and Sanctura 20 mg before breakfast and supper. ALLERGIES: THE PATIENT HAS AN ALLERGY TO MACROBID FOR WHICH SHE GETS A RASH AND ADVERSE Consultation Report [facility] [address] [place]. [address] NAME: AMBER MOTA : 68 STATUS : ADM IN [facility]#: [id number] AGE: 46 ADM/REG DATE : 03/26/17 MR#: [id number] REPORT SERV DATE: 03/27/17 DICTATED BY: DATE: REPORT STATUS : Draft TRANSCRIBED BY: MODSujata DATE: 03/27/17 REACTIONS TO LISINOPRIL IN WHICH SHE DROPS HER BLOOD PRESSURE. MORPHINE, SHE VOMITS BLOOD AND HALLUCINATIONS. CODEINE, SHE VOMITS BLOOD AND HALLUCINATES. CLONIDINE DROPS HER BLOOD PRESSURE. CHLORPROMAZINE FOR WHICH THE PATIENT IS UNABLE TO RECALL OR VERIFY HER ALLERGY. SURGICAL HISTORY: Amputation of right great toe, appendectomy, cholecystectomy, hysterectomy, tubal ligation, C-sections x2, hemorrhoidectomy, left total knee arthroplasty, and renal calculi. SOCIAL HISTORY: The patient is . She lives with her two children. She is wheelchair bound, but is able to transfer from bed to chair and take care of herself by herself. She is on disability. Denies alcohol, illicit drug use, or tobacco abuse. FAMILY HISTORY: Mother has had a stroke and had hypertension. Father of an VA, but she does not know at what age due to no contact with the family. The patient has brother and sister who have both of complications of diabetes with both of them also having a kidney transplant. REVIEW OF SYSTEMS: Full 10-point review of systems was obtained. Pertinent positives are mentioned in the HPI. PHYSICAL EXAMINATION: VITAL SIGNS: Blood pressure is 103/53, O2 saturation is 95% on 2 L nasal cannula, temperature is 98.0, respirations are 14, heart rate is 72. GENERAL: This is a morbidly obese female, resting in bed, in no acute distress. NEURO: Head is atraumatic, normocephalic. The patient is alert and oriented x3. Cranial nerves II through XII are grossly intact. Mood is pleasant and appropriate. NECK: Neck is supple with no obvious thyromegaly or lymphadenopathy. Neck veins are flat. Trachea is midline. EENT: Sclerae are nonicteric. Pupils are equal, round, reactive to light and accommodation. Nares are patent. Mucous membranes are moist. Extraocular muscles are within normal limits. Tongue is midline without deviation. Soft palate rises equally on phonation. LUNGS: Lungs are clear to auscultation with normal respiratory effort. The patient does have a loose cough on deep inspiration. CARDIOVASCULAR: S1 and S2 with no obvious murmurs, rubs, or gallops. Carotids with no obvious bruits. ABDOMEN: Soft. She is tender in her right upper quadrant to palpation. No palpable organomegaly. Bowel sounds are active. Last bowel movement was on 03/27/2017. EXTREMITIES: No significant edema or cyanosis. The patient does have some deformity of bilateral feet due to atrophy and previous surgeries from her cerebral palsy. Pulses are present and equal bilaterally. SKIN: Skin is warm and dry with normal color and turgor. No unusual rashes or skin lesions. PSYCH: The patient is pleasant and cooperative. Consultation Report [address] [address] NAME: AMBER MOTA : 68 STATUS : ADM IN [facility]#: [id number] AGE: 46 ADM/REG DATE : 03/26/17 MR#: [id number] REPORT SERV DATE: 03/27/17 DICTATED BY: DATE: REPORT STATUS : Draft TRANSCRIBED BY: MARY DATE: 03/27/17 LABORATORY DATA: Sodium is 142, potassium 4.2, chloride is 106, bicarb is 31, BUN is 10, creatinine 0.73, GFR is 98, glucose is 111, calcium is 9.1. WBCs 9.7, hemoglobin 12.1, hematocrit 37.5, platelets 294. ABGs; pH 7.38, CO2 is 48, O2 saturation is 71%, base excess is 1.7, bicarb is 27.5, O2 saturation is 93.3 on 2 L nasal cannula. ASSESSMENT AND PLAN: 1. The patient is a well-controlled asthmatic who uses Symbicort, Singulair, and albuterol. 2. Chronic obstructive pulmonary disease. The patient had a chest x-ray on 03/26/2017, which showed no acute changes. ABGs exhibit some hypercarbia, which is compensated. We have ordered DuoNeb q.4 hours, and the patient to be up in a wheelchair three times a day. We are encouraging the patient to use her ICS 10 times an hour, we have added Mucinex for her cough. 3. History of pulmonary embolism. At this time, the patient is not experiencing any chest pain. No tachycardia or tachypnea. We are adding a D-dimer to her blood in the lab. The patient will resume the Xarelto when okayed by Dr. Lyons, and until that time, she will be covered by a Lovenox bridge of 60 mg daily. We would like to take the time to thank you for this consultation. We will continue to follow the patient with you until it is time for her to be discharged. Please let us know if we can be of any further assistance. SLC/MODL Grtea Dumont NP / [id number] CC: Ana María Callahan III, MAX RUSSELL
--- NOTE | ~2017-03-26 | OP ---
Record Of Operation [facility] [address] [place]. [address] NAME: AMBER MOTA : 68 STATUS : REG [facility] PAT#: [id number] AGE: 46 ADM/REG DATE : 03/26/17 MR#: [id number] REPORT SERV DATE: 03/26/17 DICTATED BY: MICHAEL GOMEZ III DATE: 03/26/17 REPORT STATUS : Draft TRANSCRIBED BY: MODSujata DATE: 03/26/17 DATE OF PROCEDURE: 03/26/2017 PROCEDURE: Cystoscopy, retrograde with a ureteroscopy on both moieties of a duplicated right system. PREOPERATIVE DIAGNOSIS: History of candidal pyelonephritis with possible ureteral stone. 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 She has had multiple stones in the right upper pole moiety, drains at the bladder neck. She has not been incontinent until recently. Has had stones in both moieties at the right side of the horseshoe kidney. When she came in, there was some mild dilatation of the upper tract with a possible stone. At that time, her urine was inflammatory and she was taken the operating room. Retrogrades did fail to reveal a definite stone. The urine in the upper pole was cloudy and that side was stented. She came back for bilateral ureteroscopies. DESCRIPTION OF PROCEDURE: She was induced under general anesthesia. Care was taken not to abduct the thighs too much since her recent hip surgery. The urethra was examined and the stent was just inside the bladder neck. This was removed and a wire was placed. I then placed a rigid scope almost to the ureteropelvic junction, did not see any stone. The urine was somewhat cloudy. It should be noted that on exam of the bladder, there was some tiny stone fragments of 1 mm or less. There was no stone in the ureter. 9.5 sheath passed easily up to the right upper pole moiety. Flexible ureteroscopy was done at this point and was negative. The right side was examined in a similar fashion. The urine was clear and no stones were noted. I felt with cloudy urine in the upper pole that she probably needed a stent and additional Diflucan. I did notice that while scoping the lower pole system that the dye drained poorly from the renal pelvis and mid ureter. It tapered down to a 0.6 cm or 0.7 cm from the bladder neck. I placed the rigid scope back into the upper pole and ureter and found a clot, which was removed. A double-J stent was placed with a loop within the bladder neck and a suture taped to the abdomen. Impression is that of pyelonephritis. I have attempted on at least one occasion to do a voiding cystogram to see if she refluxes into the upper pole. The ureteral orifice does not seem to be obstructed. On the [facility], she could not void on command to check for reflux. After her stent is out, I will try to get a voiding study under fluoro and see if we can demonstrate a reflux. This could be the likely source of the hydronephrosis and the recurrent fungal infections. In writing her orders, I came across a note that she had stopped her Xarelto upon my orders, but they were clearly not in her preop orders. She has had a pulmonary embolus in the past, so we will go ahead and start her on Lovenox in the recovery room and keep her on Lovenox for the next several days. She tolerated the procedure well and was taken to the recovery room. OB/MODL Michael Record Of Operation [facility] [id number] [place]. [address] NAME: AMBER MOTA : 68 STATUS : REG [facility]#: [id number] AGE: 46 ADM/REG DATE : 03/26/17 MR#: [id number] REPORT SERV DATE: 03/26/17 DICTATED BY: MICHAEL GOMEZ III DATE: 03/26/17 REPORT STATUS : Draft TRANSCRIBED BY: MODL DATE: 03/26/17 Eloy FERRIS M.D. / [id number] CC: Ana María Callahan III, MAX RUSSELL II
--- NOTE | ~2017-03-26 | OP ---
Record Of Operation [facility] [address], [place]. [address] NAME: AMBER MOTA : 68 STATUS : REG [facility] PAT#: [id number] AGE: 46 ADM/REG DATE : 03/26/17 MR#: [id number] REPORT SERV DATE: 03/26/17 DICTATED BY: MICHAEL GOMEZ III DATE: 03/26/17 REPORT STATUS : Draft TRANSCRIBED BY: MODL DATE: 03/26/17 DATE OF PROCEDURE: 03/26/2017 ADDENDUM A 03/21 Polaris stent was placed in the upper pole moiety of the duplicated right system. A loop was left in the bladder and a suture tape for later removal. OB/MODL Michael Gomez III, M.D. / [id number] CC: Ana María Callahan III
--- NOTE | ~2017-03-26 | HP ---
History And Physical [facility] [address] [place]. [address] NAME: AMBER MOTA : 68 STATUS : ADM [facility] PAT#: [id number] AGE: 46 ADM/REG DATE : 03/26/17 MR#: [id number] REPORT SERV DATE: 03/28/17 DICTATED BY: MICHAEL GOMEZ III DATE: 03/28/17 REPORT STATUS : Draft TRANSCRIBED BY: MODSujata DATE: 03/28/17 DATE OF ADMISSION: 03/26/2017 REASON FOR ADMISSION: Ureteral obstruction, possible stone. HISTORY OF PRESENT ILLNESS: The patient is a 46-year-old white female with cerebral palsy, who has had multiple stones. 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 The upper pole moiety empties at the bladder neck. She came in with UTI and mild hydro. It did look as if there was a stone in the upper pole ureter, although it was difficult to delineate completely. A stent was placed several weeks ago and cultures revealed Vandana albicans. She was placed on Diflucan and was brought back for definitive therapy, which will include ureteroscopy of both ureters since she has had a history of stones in both. She has a history of cerebral palsy with lower extremity plegia. She has had recurrent UTIs, pulmonary emboli in 2015 and 2016, hiatal hernia, and sleep apnea. She also has pulmonary hypertension, COPD, schizoaffective disorder, reflux, depression, IBS, constipation. She has had endometriosis. MEDICATIONS: Medicines at home are albuterol, Abilify, Valium, Cymbalta, Singulair, Percocet, Xarelto, trazodone, and Sanctura. ALLERGIES: SHE IS ALLERGIC TO MACROBID, LISINOPRIL, MORPHINE, CODEINE, CLONIDINE, AND THORAZINE. SURGICAL HISTORY: Appendectomy, cholecystectomy, hysterectomy, two C-sections, hemorrhoidectomy, left total knee and stone surgery. SOCIAL HISTORY: She is , lives with her children. REVIEW OF SYSTEMS: Incontinence, some occasional wheezing, some constipation. No chest pain and no shortness of breath. PHYSICAL EXAMINATION: VITAL SIGNS: Stable. HEENT: Unremarkable. NECK: Supple. LUNGS: Clear. ABDOMEN: Soft, nontender. Bowel sounds present and active. Liver and spleen were not enlarged. There was no flank tenderness. EXTREMITIES: Her legs had limited abduction. There was no pedal edema. IMPRESSION: Left ureteral obstruction with possible stone. I have also discussed the possibility of her having reflux in this ureter. We attempted a cystogram in 2014, but she could not void and there was no reflux. We will do a cystoscopy, bilateral retrograde, and possible stone extraction. History And Physical [address] [address] NAME: AMBER MOTA : 68 STATUS : ADM [facility] PAT#: [id number] AGE: 46 ADM/REG DATE : 03/26/17 MR#: [id number] REPORT SERV DATE: 03/28/17 DICTATED BY: MICHAEL GOMEZ III DATE: 03/28/17 REPORT STATUS : Draft TRANSCRIBED BY: MARY DATE: 03/28/17 OB/MARY Michael Gomez III, M.D. / [id number] CC: Ana María Callahan III, Max Russell II
--- NOTE | ~2017-03-26 | DS ---
Discharge Summary [facility] [address] [place]. [address] NAME: AMBER MOTA : 68 STATUS : DIS [facility] PAT#: [id number] AGE: 46 ADM/REG DATE : 03/26/17 MR#: [id number] REPORT SERV DATE: 03/29/17 DICTATED BY: MICHAEL GOMEZ III DATE: 03/28/17 REPORT STATUS : Draft TRANSCRIBED BY: MODSujata DATE: 03/28/17 ADMISSION DATE: 03/26/2017 DISCHARGE DATE: 03/28/2017 DISCHARGE DIAGNOSES: 1. Right hydronephrosis with fungal urinary tract infection. 2. Dyspnea. 3. Hypertension. PROCEDURE: Cystoscopy, ureteroscopy, and renoscopy of both collecting systems in her right horseshoe kidney with insertion of stent. HISTORY: The patient is a 46-year-old female with history of multiple stones, chronic UTIs, and incontinence. 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 She has had several stones and required extraction. Recently, she came in with a fungal UTI and probable fungal pyelonephritis, it was felt possibly there was a stone in the upper pole moiety, she was stented, and she was brought back. She was admitted and a ureteroscopy was done, some stone fragments were noted, but no stones required removal. Both upper and lower units were examined with a flexible ureteroscope and no stones were seen. There was, however, cloudy urine in the upper pole moiety. She was left on Diflucan and a stent was placed. Postoperatively, she had some shortness of breath, was seen by the hospitalist, they did not feel like she had had a pulmonary embolus. Her lungs were clear. There was no chest pain. On the morning of discharge, her shortness of breath had resolved. She was afebrile. White count was 7.7 and hemoglobin 11.5. Lytes were normal. She was voiding well with Pyridium and will be discharged home assuming the hospitalists are agreeable on Diflucan and Xarelto. She will take the Diflucan for the next 14 days, pull the stent out in a.m., and we will again attempt a voiding cystogram to see if she is refluxing the upper pole moiety. The other issue could be that of obstruction, although her ureter has always been easy to catheterize and place a ureteroscope within its orifice. DICTATED BY: Michael Gomez III, M.D. OB/MODL Michael Gomez III, M.D. / [id number] CC: Michael Gomez III, M.D. [place] Aroldo Hernandez II
[~2017-03-26 07:41] MED LIST changes: +Proair Hfa; +SANCTURA20 MG PO; +TRAZ100 PO
[2017-03-27 06:52] LABS: HEMOGLOBIN 12.1 g/dL (12.0-16.0); MEAN CORPUS HGB CONC 32.3 g/dL (32.0-36.0); MEAN CORPUSCULAR HEMOGLOB 29.2 pg (26.0-34.0); MEAN CORPUSCULAR VOLUME 90.6 fL (80-100); MEAN PLATELET VOLUME 9.6 fL (9.2-13.0); PLATELET COUNT 294 10/3/uL (150-400); RBC DISTRIBUTION WIDTH 14.5 % (12.0-16.0); RED CELL COUNT 4.14 10/6/uL (4.0-5.6)
[2017-03-27 06:53] LABS: HEMATOCRIT 37.5 % (36.0-48.0); MANUAL DIFF YES %; WHITE BLOOD CELLS 9.7 10/3/uL (4.5-10.5)
[2017-03-27 07:20] LABS: LYMPHOCYTES 18 %; LYMPHOCYTES ABSOLUTE (CALC) 1.75 10/3/uL (0.67-4.30); MONOCYTES 7 %; MONOCYTES ABSOLUTE (CALC) 0.68 10/3/uL (0.21-1.20); NEUTROPHILS ABSOLUTE (CALC) 7.28 10/3/uL (2.02-8.40); PLATELET ESTIMATE ADQ (ADEQUATE); RBC MORPHOLOGY NORM (NORMAL); SEGMENTED NEUTROPHIL (0) 75 %; TOTAL NUCLEATED CELLS 100
[2017-03-27 08:40] LABS: BUN (BLOOD UREA NITROGEN) 10 MG/DL (6-23); CALCIUM, SERUM 9.1 MG/DL (8.5-10.4); CHLORIDE, SERUM 106 MMOL/L (96-112); CO2 (CARBON DIOXIDE) 31 MMOL/L (24-34); CREATININE 0.73 MG/DL (0.55-1.02); GFR AFRICAN AMERICAN 114 ML/MIN (>=60); GFR NON AFRICAN AMERICAN 98 ML/MIN (>=60); GLUCOSE, SERUM 111 MG/DL (60-99); POTASSIUM, SERUM 4.2 MMOL/L (3.5-5.3); SODIUM, SERUM 142 MMOL/L (135-148)
[2017-03-27 08:53] LABS: BE (BASE EXCESS) 1.7 MEQ/L (0 +/- 2.5); CARBOXYHEMOGLOBIN 0.8 % (0-3); DEVICE NC; HCO3 (ACTUAL BICARBONATE) 27.5 MEQ/L (23-27); HEMOBLOGIN CONTENT 12.5 G/DL (12-16); INSTRUMENT SERIAL # 8083; METHEMOGLOBIN 0.3 % (0-3); O2 CONTENT 16.3 VOL% (18-24); OPERATOR ID 32214; PCO2 (CO2 TENSION) 48 MMHG (35-45); PO2 (O2 TENSION) 71 MMHG (79-93); SAMPLE Arterial; pH 7.38 (7.37-7.43)
[2017-03-27 08:54] LABS: ALLENS TEST Pos
[2017-03-28 06:44] LABS: HEMATOCRIT 35.9 % (36.0-48.0); HEMOGLOBIN 11.5 g/dL (12.0-16.0); MEAN CORPUSCULAR HEMOGLOB 29.5 pg (26.0-34.0); MEAN CORPUSCULAR VOLUME 92.1 fL (80-100); MEAN PLATELET VOLUME 9.7 fL (9.2-13.0); PLATELET COUNT 286 10/3/uL (150-400); WHITE BLOOD CELLS 7.7 10/3/uL (4.5-10.5)
[2017-03-28 06:49] LABS: BUN (BLOOD UREA NITROGEN) 11 MG/DL (6-23); CALCIUM, SERUM 8.6 MG/DL (8.5-10.4); CHLORIDE, SERUM 111 MMOL/L (96-112); CO2 (CARBON DIOXIDE) 29 MMOL/L (24-34); CREATININE 0.65 MG/DL (0.55-1.02); GFR AFRICAN AMERICAN 123 ML/MIN (>=60); GFR NON AFRICAN AMERICAN 106 ML/MIN (>=60); SODIUM, SERUM 144 MMOL/L (135-148)
[2017-03-28 06:50] LABS: GLUCOSE, SERUM 80 MG/DL (60-99); MANUAL DIFF YES %
[2017-03-28 06:51] LABS: POTASSIUM, SERUM 4.4 MMOL/L (3.5-5.3)
[2017-03-28 07:25] LABS: BAND NEUTROPHILS 3 %; LYMPHOCYTES 18 %; LYMPHOCYTES ABSOLUTE (CALC) 1.39 10/3/uL (0.67-4.30); MONOCYTES 7 %; MONOCYTES ABSOLUTE (CALC) 0.54 10/3/uL (0.21-1.20); NEUTROPHILS ABSOLUTE (CALC) 5.78 10/3/uL (2.02-8.40); PLATELET ESTIMATE ADQ (ADEQUATE); RBC MORPHOLOGY NORM (NORMAL); SEGMENTED NEUTROPHIL (0) 72 %; TOTAL NUCLEATED CELLS 100
[2017-03-28] MEDS ORDERED: PCET PO (11:21)
[2017-03-28] MEDS ORDERED: FLUCON1 PO (11:21)
== END 2017-03-28 13:30 | DRG 670 ==
LOC: SDC 07:41 → 4SO 16:19
PROVIDERS: Nurse Practitioner Family; Urology
PROC: 0TC68ZZ Extirpation of Matter from Right Ureter, Via Natural or Artificial Opening Endoscopic (ICD-10-PCS; 2017-03-26)
PROC: 0T7C8DZ Dilation of Bladder Neck with Intraluminal Device, Via Natural or Artificial Opening Endoscopic (ICD-10-PCS; 2017-03-26)
PROC: 0TPB8DZ Removal of Intraluminal Device from Bladder, Via Natural or Artificial Opening Endoscopic (ICD-10-PCS; principal; 2017-03-26 09:00)
DX: N13.6 Pyonephrosis (principal); I10 Essential (primary) hypertension; N39.0 Urinary tract infection, site not specified; J45.909 Unspecified asthma, uncomplicated; J44.9 Chronic obstructive pulmonary disease, unspecified
CPT/HCPCS: 36600; 71010; 74420; 80048; 82805; 82962; 83735; 85025; 85379; 94640; A9270-GY; C1758; C1769; C1894; C2617; J1170; J1956; J2250; J2370; J2405; J2710; J3010; Q9967